=== PATIENT | female | born 1990 | race Caucasian/White ===

== ENCOUNTER 2018-10-06 13:04 | Outpatient (RCR) | payer OTHER ==
[~2018-10-06 13:04] MED LIST: NO HOME MEDICATIONS
== END 2018-10-14 15:44 ==
LOC: WSOH 13:04
DX: S60.011A Contusion of right thumb without damage to nail, initial encounter (principal); W22.8XXA Striking against or struck by other objects, initial encounter; Y92.219 Unspecified school as the place of occurrence of the external cause; Y99.0 Civilian activity done for income or pay
CPT/HCPCS: 24091; A6549

== ENCOUNTER 2018-12-18 09:39 | Outpatient (RCR) | payer OTHER | END 2019-01-09 13:12 | disposition home or self-care (01) | LOC: WSOH 09:39 | DX: T15.12XA Foreign body in conjunctival sac, left eye, initial encounter (principal); H57.12 Ocular pain, left eye; Y93.E9 Activity, other interior property and clothing maintenance; Y92.219 Unspecified school as the place of occurrence of the external cause; Y99.0 Civilian activity done for income or pay ==

== ENCOUNTER 2019-03-06 22:44 | Emergency (ER) | payer OTHER ==
[~2019-03-06] VITALS: Ht 172.7 cm; Wt 84.1 kg
[2019-03-06 22:51] VITALS: TEMP 99.8
[2019-03-07] MEDS ORDERED: AKTOB 5 ML5 ML OD (00:52)
[2019-03-07 01:20] VITALS: BP 125/87; PULSE 85
== END 2019-03-07 01:20 | disposition home or self-care (01) ==
LOC: COL.ER 22:44
DX: H10.211 Acute toxic conjunctivitis, right eye (principal)

== ENCOUNTER 2020-06-26 17:06 | Emergency (ER) | payer BC ==
[~2020-06-26] VITALS: Ht 175.3 cm; Wt 88.6 kg
[~2020-06-26 17:06] MED LIST changes: +AKTOB 5 ML5 ML OD
[2020-06-26 17:15] VITALS: BP 156/85; TEMP 98
[2020-06-26 17:37] VITALS: PULSE 90
== END 2020-06-26 17:38 | disposition home or self-care (01) ==
LOC: COL.ER 17:06
DX: S61.211A Laceration without foreign body of left index finger without damage to nail, initial encounter (principal); W26.0XXA Contact with knife, initial encounter; Y92.090 Kitchen in other non-institutional residence as the place of occurrence of the external cause

== ENCOUNTER → 2021-06-20 | Outpatient (CLI) | payer BC | LOC: ZCOL.LAB 16:45 | DX: R05.1 Acute cough (principal); Z20.822 Contact with and (suspected) exposure to COVID-19 ==

== ENCOUNTER 2021-08-09 01:06 | Emergency (ER) | payer BC ==
[2021-08-09 01:45] VITALS: TEMP 98.2
[2021-08-09] MEDS ORDERED: AMOXICILLIN 8751 TAB PO (02:09)
[2021-08-09 02:33] VITALS: BP 136/99; PULSE 82
== END 2021-08-09 02:33 | disposition home or self-care (01) ==
LOC: COL.ER 01:06
DX: R05.9 Cough, unspecified (principal)